=== PATIENT | male | born 1985 | race Caucasian/White ===

== ENCOUNTER 2017-08-08 14:59 | Emergency (ER) | payer OTHER ==
[~2017-08-08] VITALS: Ht 175.3 cm; Wt 80.0 kg
[~2017-08-08 14:59] MED LIST: ALBU6.7H INH; PRED20 PO; Z.0.NO CURRENT MEDS; ZITH250T PO
[2017-08-08 15:35] VITALS: BP 155/84; PULSE 104; RESP 14; TEMP 97.8; O2SAT 99
--- NOTE | 2017-08-08 16:03 | PD ---
HPI Chief Complaint: Psychiatric Symptoms Time Seen by Provider: 15:58 Travel History International Travel<30 days: No Contact w/Intl Traveler<30days: No Traveled to known affect area: No History of Present Illness HPI 32-year-old male brought in from [facility] after being medically cleared for Nguyen act, being transferred here for psychiatric services. Patient reportedly took an overdose of crack, and opioids, attempted to kill himself. Patient was medically cleared by [facility] and transfer was accepted by Dr. Castanon. Patient arrives via EMS. He currently has no medical complaints. Patient reports history of asthma. Patient has no known drug allergies. [facility] Social History Alcohol Use: Yes Tobacco Use: Yes Substance Use: Yes Allergies-Medications (Allergen,Severity, Reaction): Coded Allergies: No Known Allergies (Unverified , 05/20/12) Reported Meds & Prescriptions Reported Meds & Active Scripts Active Zithromax Z-Carlos Manuel (Azithromycin) 250 Mg Tab 250 Mg PO DIRECTED 5 Days 500 MG (2 TABLETS) PO ON DAY 1, THEN 250 MG (1 TABLET) PO ON DAYS 2 TO 5. Deltasone 20 Mg Tab (Prednisone) 20 Mg Tab 20 Mg PO BID Proventil Hfa (Albuterol Sulfate) 6.7 Gm Aero 2 Puff INH Q4HPRN Reported No Current Meds (Miscellaneous Medication) Misc Review of Systems Except as stated in HPI: all other systems reviewed are Neg General / Constitutional: No: Fever Eyes: No: Visual changes HENT: No: Headaches Cardiovascular: No: Chest Pain or Discomfort Respiratory: No: Shortness of Breath Gastrointestinal: No: Abdominal Pain Genitourinary: No: Dysuria Musculoskeletal: No: Pain Skin: No Rash Neurologic: No: Weakness Psychiatric: Positive: Suicidal Ideations, Substance Abuse, No: Depression, Homicidal Ideation Endocrine: No: Polydipsia Hematologic/Lymphatic: No: Easy Bruising Physical Exam Narrative GENERAL: Patient is seen in the ambulance [facility] SKIN: Warm and dry. Normal color. Normal turgor HEAD: Atraumatic. Normocephalic. EYES: Pupils equal and round. No scleral icterus. No injection or drainage. ENT: No nasal bleeding or discharge. Mucous membranes pink and moist. Pharynx is clear. Airway is patent. NECK: Trachea midline. Supple nontender. CARDIOVASCULAR: Regular rate and rhythm. No murmurs gallops or rubs RESPIRATORY: No accessory muscle use. Clear to auscultation. Breath sounds equal bilaterally. MUSCULOSKELETAL: Extremities without clubbing, cyanosis, or edema. No obvious deformities. NEUROLOGICAL: Awake and alert. No obvious cranial nerve deficits. Motor grossly within normal limits. Five out of 5 muscle strength in the arms and legs. Normal speech. PSYCHIATRIC: Appropriate mood and affect; insight and judgment normal. Data Data Last Documented VS Vital Signs Date Time Temp Pulse Resp B/P (MAP) Pulse Ox O2 Delivery O2 Flow Rate FiO2 08/08/17 15:35 97.8 104 14 155/84 (107) 99 MDM Medical Decision Making Medical Screen Exam Complete: Yes Emergency Medical Condition: Yes Medical Record Reviewed: Yes Differential Diagnosis Nguyen act. Psychiatric issues. Suicidal ideation. Polysubstance abuse. Narrative Course Medical record and notes from the transferring hospital was reviewed. Patient is medically stable for psychiatric evaluation. Diagnosis Primary Impression: Medical clearance for psychiatric admission Condition: Stable Franki Bruce Aug 08, 2017 16:03
[2017-08-08 16:42] VITALS: BP 112/65; PULSE 56; RESP 17; TEMP 98.4; O2SAT 99
--- NOTE | 2017-08-08 23:28 | PD ---
History of Present Illness Chief Complaint: Psychiatric Symptoms Time Seen by Provider: 10:20 Travel History International Travel<30 Days: No Contact w/Intl Traveler<30days: No Known affected area: No Legal Status Legal Status: Nguyen Act Nguyen Act Signed By: Jevon Etienne Nguyen Act Comment: 08/07/2017 1113 PM D/S [facility] #[id number] History of Present Illness: History of Present Illness HPI 32-year-old male with history of substance abuse who brought in from [facility] under a Nguyen act . The Nguyen act alleges that the patient called 911 and reported that he was behind a gas station and that he had taken a bunch of heroin. When the police found him he reported that he had taken a large amount of cocaine and an unknown amount of pills. The police then asked him if he was suicidal and he responded yes. The patient reports today that he was out with friends and they use substances and caused him to " spin out". The patient denies that this was a suicidal attempt at all. He reports that he just completed detox treatment at [facility] followed by a stay at [facility] by the [facility]. He used substances again 2 days ago and therefore had to leave that program. Since being here in the ED he tells me that he has made plans to go into a long- term, 1 year program at [facility]. The patient's mother has helped him gaining admission to this program and he has a bed available this Friday. He is requesting discharge and he will be staying with his parents. The patient presents no psychosis, no shannon. He is cognitively intact. No suicidal or homicidal ideation. Toxicology obtained at [facility] positive for amphetamines and opiates. Psychiatric History Psychiatric History Hx Psychiatric Treatment: Denies History of Inpatient Treatment: No Guns or firearms in home: No Social History male. Currently living with his mother. Unemployed. Hx Alcohol Use: Yes Hx Tobacco Use: Yes Hx Substance Use: Yes Substance Use Type: Crack, Synth Opiates-Pain Pills Allergies-Medications (Allergen,Severity, Reaction): Coded Allergies: No Known Allergies (Unverified , 05/20/12) Reported Meds & Prescriptions Reported Meds & Active Scripts Active Zithromax Z-Carlos Manuel (Azithromycin) 250 Mg Tab 250 Mg PO DIRECTED 5 Days 500 MG (2 TABLETS) PO ON DAY 1, THEN 250 MG (1 TABLET) PO ON DAYS 2 TO 5. Deltasone 20 Mg Tab (Prednisone) 20 Mg Tab 20 Mg PO BID Proventil Hfa (Albuterol Sulfate) 6.7 Gm Aero 2 Puff INH Q4HPRN Reported No Current Meds (Miscellaneous Medication) Misc Review of Systems Except as stated in HPI: all other systems reviewed are Neg Mental Status Examination Appearance: Appropriate Consciousness: Alert Orientation: x4 Motor Activity: Normal gait Speech: Unremarkable Language: Adequate Fund of Knowledge: Adequate Attention and Concentration: Adequate Memory: Unremarkable Mood: Appropriate Affect: Appropriate Thought Process & Associations: Intact Thought Content: Appropriate Hallucination Type: None Delusion Type: None Suicidal Ideation: No Suicidal Plan: No Suicidal Intention: No Homicidal Ideation: No Homicidal Plan: No Homicidal Intention: No Insight: Poor Judgment: Impulsive MDM Medical Decision Making Medical Record Reviewed: Yes Assessment/Plan 32-year-old male with history of substance abuse who in context of using substances contacted night online and reported that he had taken a bunch of substances. The patient admits to having answered yes when he was asked by the police if he wanted to kill himself in order to have the police bring him to the hospital for the night. At this time the patient is cognitively intact. There is no suicidal or normal homicidal ideation intent or plan. The patient does not present in any unstable mental illness as defined under the Nguyen act. He has made plans to be admitted into a long-term substance abuse treatment program on Friday. He is asking for discharge and that he will be going to his mother's house. The Nguyen act is listed. Psychiatrically clear for discharge from ED Orders Orders Psych Screen (08/08/17 18:28) Results Vital Signs Date Time Temp Pulse Resp B/P (MAP) Pulse Ox O2 Delivery O2 Flow Rate FiO2 08/08/17 16:42 98.4 56 17 112/65 (81) 99 Room Air 08/08/17 15:35 97.8 104 14 155/84 (107) 99 Diagnosis Primary Impression: Medical clearance for psychiatric admission Additional Impression: Substance abuse Psychiatrically Cleared: Yes Med/ Other Pt Specific Info: No Meds Exist/No RX given Disposition: 01 DISCHARGE HOME Condition: Stable Problem Qualifiers Joselyn Iniguez Aug 08, 2017 23:28
--- NOTE | 2017-08-08 23:31 | PD ---
Physical Exam Date Seen by Provider: Aug 08, 2017 Time Seen by Provider: 23:30 Data Data Last Documented VS Vital Signs Date Time Temp Pulse Resp B/P (MAP) Pulse Ox O2 Delivery O2 Flow Rate FiO2 08/08/17 16:42 98.4 56 17 112/65 (81) 99 Room Air Orders Orders Psych Screen (08/08/17 18:28) Ed Discharge Order (08/08/17 23:29) MDM Medical Record Reviewed: Yes Supervised Visit with CHARLEE: No Differential Diagnosis . Narrative Course The patient's been evaluated by the psych nurse practitioner. His Nguyen act is lifted. He does not meet admission criteria. He is not a threat to himself or others. The patient is discharged. Diagnosis Primary Impression: Medical clearance for psychiatric admission Additional Impression: Substance abuse Patient Instructions: General Instructions Departure Forms: Tests/Procedures Additional Instruction: Follow-up with the recommendations of the psych screener Disposition: 01 DISCHARGE HOME Condition: Stable Gurjit Olsen Aug 08, 2017 23:31
== END 2017-08-08 23:33 | disposition home or self-care (01) ==
LOC: NEPJ 14:59
DX: F19.10 Other psychoactive substance abuse, uncomplicated (principal); Z72.0 Tobacco use
CPT/HCPCS: 99284